=== PATIENT | male | born 1945 | race Caucasian/White ===

== ENCOUNTER → 2023-10-26 08:31 | Outpatient (REF) | payer MEDICARE, OTHER, SELFPAY | LOC: HWRAD 08:31 | PROVIDERS: ATTENDING PHYSICIAN Internal Medicine Critical Care Medicine; FAMILY PHYSICIAN Internal Medicine | DX: R91.1 Solitary pulmonary nodule (principal) | CPT/HCPCS: 71250 ==

== ENCOUNTER → 2023-11-23 09:15 | Outpatient (REF) | payer MEDICARE, OTHER, SELFPAY ==
[2023-11-23 12:27] LABS: FSH 5.1 mIU/ml (1.55-9.74); Prolactin 7.5 ng/ml (3.7-17.9)
== END ==
LOC: HWLAB 09:15
PROVIDERS: ATTENDING PHYSICIAN Internal Medicine Endocrinology, Diabetes & Metabolism; FAMILY PHYSICIAN Internal Medicine
DX: R79.89 Other specified abnormal findings of blood chemistry (principal)
CPT/HCPCS: 36415; 83001; 84146

== ENCOUNTER 2024-01-12 23:41 | Observation (INO) | payer MEDICARE, OTHER, SELFPAY ==
--- NOTE | 2024-01-12 20:34 | EDRN ---
Pt denies headache but says his head feels 'fuzzy' which is not a new symptoms. Pt says when he has his stroke last year symptoms resolved quicker than tonight. Pt denies cp, sob, abd pain, n/v, dizziness, visual disturbance, weakness. Pt does
not feel completely back to baseline yet although his speech is clear and appropriate. Pt has been taking medications as directed - did not have htn meds, eliquis or ativan tonight. Pt says he drank about 16 oz of beer tonight.
[2024-01-12 20:41] VITALS: BMI 27.8
[2024-01-12 20:43] VITALS: BP 141/85
[2024-01-12 20:45] VITALS: BP 141/85
[2024-01-12 20:50] LABS: Glucose - Point of Care 86 mg/dl (70-99)
[2024-01-12 20:56] LABS: % Basophils 0.5 % (0-2); % Eosinophils 2.3 % (0-6); % Immature Granulocytes 0.3 % (0-0.5); % Lymphocytes 29.2 % (20.5-51.1); % Monocytes 12.6 % (1.7-9.3); % Neutrophils 55.1 % (42.2-75.2); Absolute Eosinophils 0.2 10^3/uL (0-0.7); Absolute Lymphocytes 1.9 10^3/uL (1.2-3.4); Absolute Monocytes 0.8 10^3/uL (0.1-0.6); Absolute Neutrophils 3.7 10^3/uL (1.4-6.5); Hematocrit 31.4 % (39.0-52.0); Hemoglobin 11.4 g/dL (13.0-18.0); Mean Corp Hgb Conc. 36.3 g/dL (33.0-37.0); Mean Corpuscular Hgb 32.3 pg (27.0-31.0); Mean Platelet Volume 8.9 fL (7.4-10.4); Nucleated Red Blood Cells % 0 % (-); Platelet Count 238 10^3/uL (130-400); Red Blood Cell Count 3.53 10^6/uL (4.70-6.10); Red Cell Dist. Width 12.4 % (11.5-14.5); White Blood Cell Count 6.7 10^3/uL (4.8-10.8)
[2024-01-12 21:00] VITALS: BP 141/84
[2024-01-12 21:07] LABS: APTT 29.5 Sec (23.4-35.0); INR 1.22; PT 15.2 Sec (11.4-14.6)
[2024-01-12 21:08] LABS: Sodium 136 mmol/L (135-145)
[2024-01-12 21:10] LABS: ALT (SGPT) 14 U/L (0-50); AST (SGOT) 22 U/L (17-59); Albumin 3.6 g/dl (3.5-5.0); Blood Urea Nitrogen 34 mg/dl (9-20); Carbon Dioxide 24 mmol/L (22-30); Estimated Creatinine Clearance 52 ml/min; Glucose 81 mg/dl (70-99); eGFR > 60.00
[2024-01-12 21:12] LABS: Alkaline Phosphatase 52 U/L (38-126); Calcium 9.5 mg/dl (8.4-10.2); Chloride 103 mmol/L (98-107)
[2024-01-12 21:24] LABS: Alcohol 34 mg/dl
--- NOTE | 2024-01-12 21:33 | ED.CVA ---
History of Present Illness
General
Chief Complaint: CVA/TIA Symptoms
Source: patient and ambulance crew
Exam Limitations: none
Time Seen by Provider: 01/12/24 20:21
Nursing documentation reviewed up to this point in time: agreed with
Onset of Stroke Symptoms
Onset of symptoms known: Yes
Date of onset of symptoms: 01/12/24
Time of onset of symptoms: 19:15
Travel History
Have you had any contact with someone who has COVID-19?: No
Do you have any symptoms of coronavirus? Fever > 100 degrees, chills, cough, shortness of breath, sore throat, loss of taste or smell, muscle aches, or headache?: No
History of Present Illness
History of Present Illness:
78-year-old male with past medical history of COPD, hypertension, hyperlipidemia, atrial fibrillation on Eliquis, TIA who presents to the emergency department via EMS as a stroke alert due to abrupt onset of slurred speech and apparently facial
droop per EMS. Patient reports that he was in his normal state of health although was a very busy day today�he says he was setting up for a green party at his house. He says that in the evening he sat down and was drinking a beer and smoking a cigar and
was making some phone calls. He says that he had finished 1 beer and was speaking on the phone to his daughter at around 7 PM and during the phone call noticed that he had acute onset of slurred speech and word finding difficulties. He called a
neighbor who called EMS to bring him to the hospital. Per EMS on arrival he was noted to have a right-sided facial droop. A prehospital stroke alert was called. His symptoms have resolved by arrival and he says that he feels well here in the
hospital. He denies any vision loss. Denies any dizziness. Denies any numbness or weakness in his extremities. Denies any headache. He denies any other complaints. He says he had a very similar episode about a year ago when he was diagnosed
with new onset A-fib and was treated as a TIA.
Past History
Past History
ED Past Medical History: Cancer (Left kidney Cancer Skin cancer), COPD, HTN, Hypercholesterolemia, Psychiatric (Anxiety) and Other (Cancer of L kidney, sleep apnea, gallstones, Cystitis, Neuropathy)
ED Past Surgical History: Orthopedic (Back surgery for herniated disc), Tonsilectomy and Urological (L partial nephrectomy, 09/28/2021)
Patient has exhibited threatening behavior?: No
Social History
Tobacco: Former smoker
Alcohol: Occasional
Drug: None
Personal:
Living: with family
Employment: Retired
Family History
Family History: Diabetes and CAD
Review of Systems
Review of Systems
All Other Systems: ROS reviewed and negative except as documented in HPI and ROS
Constitutional: Denies fever or chills
EENT: Denies sore throat or runny nose
Respiratory: Denies cough or trouble breathing
Cardiac: Denies chest pain or palpitations
ABD/GI: Denies abdominal pain, nausea or vomiting
: Denies flank pain
Musculoskeletal: Denies neck pain or back pain
Neurological: Reports other (Speech disturbance, facial droop); Denies dizzy, headache, weakness or numbness
Phy Exam
Physical Exam
Physical Exam:
General: Awake, alert, oriented x3; no acute distress
Head: Normocephalic, atraumatic
Eyes: Conjunctiva normal, EOMI, pupils equal round and reactive to light bilaterally
Throat: Airway intact, handling secretions
Neck: Trachea midline, supple without meningismus
Lungs: Clear to auscultation bilaterally, no wheezing, rales, rhonchi
Heart: Regular rate and rhythm, no murmurs, gallops, or rubs
Abd: Soft, non distended, nontender
Neuro: Cranial nerves intact 2 through 12, speech is fluid with no dysarthria or aphasia, no limb ataxia, motor and sensory function is intact and symmetric in the upper and lower extremities
Skin: no rash
Extremities: No edema in extremities, equal pulses in all extremities
Scores
NIH Stroke Score
Level of Consciousness: 0 - Alert
LOC Questions: 0-Answers both correctly
LOC Commands: 0-Performs both correctly
Best Horizontal Gaze: 0-Normal
Visual Quint[place]: 0=Normal, no visual loss
Facial Palsy: 0=Normal, symmetrical
Motor - Right Arm: 0=No drift 10 seconds
Motor - Left Arm: 0=No drift 10 seconds
Motor - Right Le-No drift 5 seconds
Motor - Left Le-No drift 5 seconds
Limb Ataxia: 0-Absent
Sensation: 0-Normal
Best Language: 0-No aphasia
Dysarthria: 0-Normal
Extinction and Inattention: 0-No abnormality
Total Score:: 0
Thrombolytic Contraindication
Inclusion and Exclusion criteria reviewed: Yes
Reasons for NON-Tx with Thrombolytics ABSOLUTE Exclusions: Patient taking oral anticoagulant and last dose within 48 hours
Heart Failure Risk
Heart Failure Risk Score: Not Applicable
Heart Score for Chest Pain Patients
STEMI patient?: Not applicable
Withdrawal Assessment of Alcohol
Withdrawal Assessment Completed?: Not applicable
Course
Orders/Labs/Results
Orders:
Orders
01/12/24 20:20
CT Head W/o Cont STROKE ALERT Stat
Reason For Exam: slurred speech/facial droop
01/12/24 20:21
CT Head/Neck Ang STROKE ALERT Urgent
Comment:
Reason For Exam: speech issues, facial droop
Bedside Glucose- Treatment ONCE
Cardiac Monitoring- Treatment ONCE
IV Insert/Care/Rem.- Treatment PRN
Vital Signs- Treatment ONCE
Frequency: Hourly
Pulse Ox/cont/shift [RESP] Stat
Quantity: 1
01/12/24 20:22
Electrocardiogram (*1) Stat
Reason for Study: Other
Other Reason for Exam: neuro symptoms
EKG- Treatment ONCE
01/12/24 20:44
Alcohol Urgent
Complete Blood Count/With Diff Urgent
Comprehensive Metabolic Panel Urgent
PTT Urgent
Prothrombin Time Urgent
01/12/24 21:30
NEUROLOGY CONSULT Urgent
Consulting Provider: Satya Christopher
Was physician already notified: Yes
Aspirin Chewable [Low Strength Aspirin] 324 mg PO NOW STA
Abnormal Lab Results
01/12/24
20:44
RBC 3.53 L 10^6/uL
(4.70-6.10)
Hgb 11.4 L g/dL
(13.0-18.0)
Hct 31.4 L %
(39.0-52.0)
MCH 32.3 H pg
(27.0-31.0)
Absolute Monos (auto) 0.8 H 10^3/uL
(0.1-0.6)
Monocytes % 12.6 H %
(1.7-9.3)
PT 15.2 H Sec
(11.4-14.6)
BUN 34 H mg/dl
(9-20)
Total Protein 6.0 L g/dl
(6.3-8.2)
01/12/24 20:44
01/12/24 20:44
Vital Signs
Initial and Last Documented VS:
Initial Vital Signs
BP
141/85
01/12/24 20:43
Last Documented Vital Signs
Temp Pulse Resp BP Pulse Ox
36.6 C 61 15 144/86 96
01/12/24 20:45 01/12/24 22:00 01/12/24 21:15 01/12/24 22:00 01/12/24 22:00
MDM/Problems Addressed
Differential Diagnosis Includes:
TIA/CVA, alcohol intoxication, complex migraine, seizure
MDM/Problems Addressed:
78-year-old male presents for evaluation as a prehospital stroke alert�had acute onset of speech disturbance and facial droop which have now resolved. His vital signs are significant for marginal hypertension otherwise unremarkable. Physical exam
as above. NIH stroke scale 0. He was taken directly to CT on arrival and is noncontrast CT head was negative. CTA head and neck also negative for any acute pathology. Labs sent off including CBC and CMP, alcohol level. Case discussed with
neurology�with symptoms resolved suspect likely TIA; would not be a candidate for TNK regardless given his anticoagulant use. Will dose with aspirin plan for admission pending labs with concern for high risk TIA�ABCD2 score is 5.
Labs reviewed: CBC shows marginal anemia otherwise unremarkable, CMP no clinically significant abnormalities. Alcohol level was only 34. Case discussed with hospitalist for admission.
Chronic conditions affecting care:
TIA, hypertension, hyperlipidemia�higher risk for stroke
Chronic conditions affecting care: HTN
Acute Exacerbation and/or Progression of Chronic Illness:
Acutely hypertensive
Acute Exacerbation and/or Progression of Chronic Illness: HTN
*Radiology
Radiology exam reviewed: radiology read reviewed
*Pulse Oximetry
Patient hypoxic: no
*EKG
Interpreted by ED Provider?: Yes
Heart Rate: 63
Rate: normal
Rhythm: sinus
[place]: normal axis
Interval: normal interval
QRS Pattern: normal QRS
Ischemia: other (Possible inferior infarct age undetermined)
*Critical Care Note
Total Time (30-74mins, 75-104mins- exclusive of procedures): Not Applicable
Data Reviewed
Review of Other/Old Records Reveals: Labs, Records and Discharge Summary
Source: patient and ambulance crew
Patient Management
Discussion with other providers: Hospitalist (Discussed with hospitalist), Welt Rander (Discussed with neurologist) and Radiologist (Discussed with radiologist)
Escalation/DeEscalation of care consider admission/obs:
Admission indicated
ED Attending Note
-
Portions of this chart may have been created with voice recognition software.� Occasional wrong word or��sound alike� substitutions may have occurred due to the inherent limitations of voice recognition software.
Discharge Plan
Departure
Patient Disposition: Admit
Date of Disposition: 01/12/24
Time of Disposition: 21:33
Admit to doctor: Chris
Presentation/result/management discussed w/ accepting MD/DO: Hospitalist
Discharge Problem:
TIA (transient ischemic attack)
Prescriptions:
No Action
lorazepam 1 MG tablet
1 mg PO BID
atorvastatin 40 mg Tablet
40 mg PO HS Qty: 30 1RF
Eliquis 5 mg Tablet
5 mg PO BID Qty: 60 1RF
metoprolol succinate 25 mg tablet extended release 24 hr
12.5 mg PO HS
Referrals:
Ilan Elliott MD [Family Provider] -
Interventions
Interventions:
*Risk Screen - Suicide Last Done: 01/12/24 20:33
*General Assessment Last Done: 01/12/24 20:33
*Neglect/Abuse Screening Last Done: 01/12/24 20:33
ED- Fall Risk Assessment Last Done: 01/12/24 20:46
*ED COVID-19 Vaccine History Last Done: 01/12/24 20:25
ED- Pulmonary Assessment Last Done: 01/12/24 21:00
ED- Neurological Assessment Last Done: 01/12/24 20:33
ED- Cardiac Assessment Last Done: 01/12/24 21:00
ED Swallowing Screen Last Done: 01/12/24 21:40
Discharge Date and Time
Print Language: DOMINICAN
[2024-01-12] MEDS: LOW STRENGTH ASPIRIN 324 MG PO (21:44)
[2024-01-12 22:00] VITALS: BP 144/86
--- NOTE | 2024-01-12 22:05 | HPS.HSE ---
Family Physician
-
Family Physician: Ilan Elliott
Chief Complaint
-
Speech deficits, facial droop
History of Present Illness
The patient is a 78 yo male with PMH significant for left renal carcinoma with left partial nephrectomy 09/28/2021 at [facility], TIA, COPD, HTN, HLD, anxiety, sleep apnea, gallstones, cystitis, neuropathy, former smoker, A.fib on Eliquis, presents
to the ED due to 1 hour of speech disturbance and facial droop noted per EMS. The patient states that he felt acute onset of difficulty speaking, articulating and formulating words, and comprehending conversation. He did not have other focal
neurologic deficits. He had head 'fogginess' and headache. Currently NIH 0. CTA head and neck no acute findings, no large vessel occlusion or aneurysm.
ED txt:
Aspirin 324 mg PO
Neuro Consult
Medical History
Past Medical History
Past Medical History: Reports Arrhythmia (A.fib on Eliquis), Cancer (left renal carcinoma with left partial nephrectomy 09/28/2021 at [facility] ), COPD, HTN, Hypercholesterolemia, Psychiatric (Anxiety) and Other (TIA)
Past Surgical History: Reports Other (left partial nephrectomy 09/28/2021 at [facility] )
Social History
Tobacco: Other (Cigars)
Alcohol: Occasional
Personal:
Living: With Family
Family History
Family History: Other (Mom-CHF ( age 57), Father 82 yo unknown causes, Sister valve replacement)
Allergies / Home Medications
Allergies reflects when Allergies were last updated in [facility].
Home Medications with original date entered in [facility]
Allergy/Medication List:
Allergies
Allergy/AdvReac Type Severity Reaction Status Date / Time
No Known Allergies Allergy Verified 01/12/24 20:20
Home Medications
lorazepam 1 mg tablet 1 mg PO BID Mental Health/Anxiety 04/21/16
apixaban 5 mg tablet (Eliquis) 5 mg PO BID #60 tabs 02/27/23
atorvastatin 40 mg tablet 40 mg PO HS #30 tabs 02/27/23
metoprolol succinate 25 mg tablet,extended release 24 hr 12.5 mg PO HS 01/12/24
Review of Systems
-
A 12 point ROS was completed and negative except as noted: Yes
Physical Exam
Vital Signs
Vital Signs
Temp Pulse Resp BP Pulse Ox
97.8 F 61 15 144/86 96
01/12/24 20:45 01/12/24 22:00 01/12/24 21:15 01/12/24 22:00 01/12/24 22:00
Physical Exam
General: Well Developed, Well Nourished, No Apparent Distress, Comfortable and Conversant
HEENT: NormoCephalic, Anicteric and Moist mucous membranes
Respiratory: Clear
Cardiac: S1/S2 and Regular Rhythm
GI: Soft, Non Tender and Non Distended
Musculoskeletal: No Clubbing, No Cyanosis and No Edema
Skin: Warm and Dry
Neuro: AO x 3, No Motor Deficits, Nonfocal/grossly intact and Cranial Nerves Intact
Psych: Calm
Laboratory Results
-
01/12/24 20:44
01/12/24 20:44
Laboratory Results
PT 15.2 Sec (11.4-14.6) H 01/12/24 20:44
INR 1.22 01/12/24 20:44
APTT 29.5 Sec (23.4-35.0) 01/12/24 20:44
Total Bilirubin 1.0 mg/dl (0.2-1.3) 01/12/24 20:44
AST 22 U/L (17-59) 01/12/24 20:44
ALT 14 U/L (0-50) 01/12/24 20:44
Alkaline Phosphatase 52 U/L (38-126) 01/12/24 20:44
Data Reviewed
-
CT Scan: Report Reviewed by me (CT head - No acute intracranial abnormalities. Findings compatible with diffuse cortical atrophy with nonspecific white matter changes as described above. CTA head/neck - per below)
Medical Tests (Nuc Med, Echo, EKG etc): Report Reviewed by me (EKG NSR replaced Tor )
Impression/Plan
-
IMPRESSION:
The patient is a 78 yo male with PMH significant for left renal carcinoma with left partial nephrectomy 09/28/2021 at [facility], TIA, COPD, HTN, HLD, anxiety, sleep apnea, gallstones, cystitis, neuropathy, former smoker, A.fib on Eliquis, presents
to the ED due to 1 hour of speech disturbance and facial droop noted per EMS. The patient states that he felt acute onset of difficulty speaking, articulating and formulating words, and comprehending conversation. He did not have other focal
neurologic deficits. He had head 'fogginess' and headache. Currently NIH 0. CTA head and neck no acute findings, no large vessel occlusion or aneurysm.
ED txt:
Aspirin 324 mg PO
Neuro Consult
#Suspected Transient Ischemic Attack versus CVA
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
vertebral artery patent
-admit tele monitoring
-serial neuro-checks
-Neurology consultation placed from ED
-continue Eliquis
-[id number] mg given in ED tonight, will continue aspirin 81 mg daily for now
-MRI brain, head and neck pending
-consider echo, discuss with Neuro in am
-speech and PT evaluation
-Cholesterol lowering diet once passes bedside swallow
#Hx of Tor, currently in NSR
-cont BB and Eliquis
-monitor overnight on tele & discuss possible further OP cardiac monitoring if indicated
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
-for team tomorrow to discuss with the patient, possible OP ENT follow up
#Hypertension , essential, stable
-Metoprolol - continue with hold parameters
#Hyperlipidemia
-statin- continue Atorvastatin 40 mg nightly
#Anxiety
-continue home Ativan dosing 1 mg PO BID
#Chronic Obstructive Pulmonary Disease , not in exacerbation
#Former smoker
#Sleep apnea
#Left renal carcinoma with left partial nephrectomy 09/28/2021 - had resection at [facility]
#Benign Prostatic Hyperplasia
#Gallstones
#Cystitis
#Neuropathy
DVT proph- Eliquis
Full Code
[2024-01-12 23:00] VITALS: BP 132/83
[2024-01-12] MEDS: TOPROL XL 12.5 MG PO (23:44)
[2024-01-12] MEDS: LIPITOR 40 MG PO (23:44)
[2024-01-12] MEDS: ATIVAN 1 MG PO (23:45)
[2024-01-12] MEDS: ELIQUIS 5 MG PO (23:45)
[2024-01-13 00:01] VITALS: BMI 27.0
[2024-01-13 00:05] VITALS: BP 149/85
[2024-01-13 00:18] VITALS: BMI 27.0
--- NOTE | 2024-01-13 01:15 | PTCARENOTE ---
Pt admitted to [id number] as a tele overflow- ambulated to the bed as a self. POC discussed- pt NIH-0 on arrival. SB/SR on the monitor- 50s- 60s. oriented to the room and call conway within reach.
[2024-01-13 05:16] VITALS: BP 132/80
[2024-01-13 05:23] VITALS: BMI 27.0
[2024-01-13 06:04] LABS: HDL Cholesterol 70 mg/dl; LDL Cholesterol, Calculated 45 mg/dl; Total Cholesterol 126 mg/dl (50-199); Triglyceride 55 mg/dl (10-149); Very Low Density Lipoprotein 11 mg/dl (0-30)
--- NOTE | 2024-01-13 08:29 | W.PN.HOSP.TC ---
Addendum entered and electronically signed by Adriel Lamar DO 01/13/24 13:37:
MRI negative for stroke.
MRA head and neck without significant vascular disease.
Neurology okay with discharge. They do not recommend adding aspirin therapy.
Neurology addressing migraine headaches as outpatient.
Original Note:
Today's Communication/Plan
-
Brain MRI
Neurology consult
Assessment / Plan
Assessment / Plan
Gen-AAOx3, NAD
HEENT-NC, AT, anicteric, clear oral mm
Neck-supple
CV-reg, no M, +S1/S2
Lungs-clear B/L
Abd-soft, NT, ND
Ext-no edema
Musculoskeletal-no cyanosis, clubbing
Skin-warm and dry
Neuro-grossly non-focal
Psych-calm, cooperative
TIA -symptoms resolved. Await MRI brain. Neurology consulted. Was not on antiplatelet therapy prior to admission, continue low-dose aspirin.
History of TIA February of last year with negative brain MRI.
Atrial fibrillation -presumably paroxysmal. Continue Eliquis. Patient states that he has remained in sinus rhythm for quite a long time. However, he does not have a smart watch. Encouraged him to get one.
Normocytic anemia -unknown acuity or etiology. Monitor for now. Follow-up for further evaluation with PCP.
Essential hypertension -stable.
Hyperlipidemia -on atorvastatin. LDL 45, total cholesterol 126, HDL 70.
COPD without exacerbation -stable.
BPH
History of left renal cell carcinoma -status post left partial nephrectomy September 2021.
Tobacco dependence -encouraged cessation. He smokes cigars.
Full code
Anticipated Discharge: Within 24 hours
Subjective/Interval History
-
Date of Service: January 13, 2024
Patient seen and examined. No complaints. No problems overnight.
Objective Data
-
Labs:
Laboratory Results
01/12/24
20:44
WBC 6.7
Hgb 11.4 L
Hct 31.4 L
Plt Count 238
PT 15.2 H
INR 1.22
APTT 29.5
Sodium 136
Potassium 4.0
Chloride 103
Carbon Dioxide 24
BUN 34 H
Creatinine 1.2
Glucose 81
Calcium 9.5
Total Bilirubin 1.0
AST 22
ALT 14
Alkaline Phosphatase 52
Vital Signs:
Vital Signs
Temp Pulse Resp BP Pulse Ox
97.6 F 59 18 132/80 98
01/13/24 05:22 01/13/24 05:16 01/13/24 05:22 01/13/24 05:16 01/13/24 05:22
Review of Systems
-
History Source: Patient
All other systems: Reviewed and negative
[2024-01-13] MEDS: ATIVAN 1 MG PO (08:43)
[2024-01-13] MEDS: ELIQUIS 5 MG PO (08:43)
--- NOTE | 2024-01-13 08:52 | CON.NEURO ---
Neuro Assessment/Plan
Assessment
IMPRESSIONS/RECOMMENDATIONS:
Abrupt change in speech change with right-sided facial weakness which was subjective
In a patient with previously diagnosed TIA and treated with anticoagulation
Differential diagnosis would include recurrent TIA despite best therapies as well as migraine with aura
Plan
continue Apixaban
Follow MRI of brain results
no indication for aspirin
need to start routine medication for headache prevention as outpatient (Atogepant)
Prochlorperazine (Compazine) for headache rescue
Will continue to follow patient. Thank you.
Consultation
Order
Date of Consultation: 01/13/24
Requesting Provider: Hospitalist
Reason for Consult: Stroke alert
Subjective/Objective
Subjective Data
Date of Service: January 13, 2024
Patient was initially evaluated by this inpatient service February 2023. Adapted are the findings:
DATE/TIME OF CONSULTATION: 02/27/23
Reason for Consultation: Aphasia
History of Present Illness:
This is a 77-year-old right-handed male who has presented to the hospital on 02/26/23 with report of reading and speech difficulty. Patient reports watching [employer]opard[employer] last evening (02/26/23) and trying to read the newspaper, when his vision suddenly
became hard to focus, and he wasn't able to read the words on the paper. He has chronic dry eye and attributed his vision change to that. He went and put his eye drops in then sat back down to read again 10 minutes later, but he still couldn't read
the words. He reports being able to see some of them, but not make out others. He went to tell his to call an ambulance, and couldn't say the word 'ambulance.' On arrival in the ER he reports feeling back to his baseline, but he was newly found
to be in Afib. He reports the entire episode lasted about 10 minutes. He denies any dizziness, swallowing difficultly, numbness, weakness, chest pain, palpitations, and shortness of breath. He does report a transient pain under his left ribcage over
the past year that occurs at rest or with movement. Yesterday, this pain was constant for the majority of the day, when it typically resolves after 15 minutes. For two days leading up to this event he reports being hypotensive (90's/50's), and
having some dizziness with standing. He contacted his PCP about this and stopped taking his amlodipine. He also reports a chronic daily headache first thing in the morning for the past 20 associated with brain fog and facial flushing. He takes
tylenol for this and it resolves after a few hours. He has seen a Neurologist for this in the past and reports MRI/MRA imaging has been negative in the past except for a tortuous right vertebral artery, his last imaging was in 2020. He was also
found to have peripheral neuropathy. He reports chronic anxiety from his mother dying at a young age, and has been taking Ativan for 40 years, he has tried to cut back on this with some success, but thinks some of his brain fog/headache may be
related to his decreasing his Ativan usage. Additionally, he reports periodic 'ten vu' when he is bench pressing. He reports that he has transient 'intrusive thoughts' that something flew in front of his face, someone is standing behind him, or
occasionally he sees a vivid image of a bathroom that isn't actually there. He has never had any neuropsychological testing and was told this may be due to cervical spine compression due to weight lifting. He denies any recent illnesses or history
of TIA, stroke, or events like this in the past. He is taking aspirin 81mg at bedtime daily and denies missing any doses.
Neuro Imaging:
1. CT Head 02/26/23: No evidence of acute intracranial abnormality.
2. MRI Brain 02/27/23: No MRI evidence for acute infarct or intracranial hemorrhage. Mild diffuse cerebral and cerebellar volume loss. Mild white matter leukoaraiosis in the frontal and parietal lobes. Moderate amount of fluid in the mastoid air
cells bilaterally which appears chronic and not definitively changed from 12/14/2020.
3. Carotid Ultrasound: pending
4. Echo: pending
Differentials for the patient's presentation include:
1. TIA likely in the setting of newly discovered Afib
2. MRI brain negative for stroke
3. Brain fog/chronic daily headache possibly related to lorazepam dependence or possibly a metabolic abnormality
Recommendations:
-Okay to discontinue aspirin and initiate anticoagulation for newly discovered Afib/stroke prevention per Cardiology today
-Aspirin efficacy test demonstrating that aspirin is not effective in this patient, although this is now irrelevant as the patient requires anticoagulation due to Afib
-Continue tylenol PRN headache, avoid NSAIDs in the future due to anticoagulation
-Carotid ultrasound ordered/pending
-Echo ordered/pending
-Consider repeat MRA head as an outpatient
-LDL goal <70. LDL is 73. Increase home atorvastatin from 20mg to 40mg daily
-Goal normoglycemia, hbA1c is 5.7
-NIHSS and neurological checks per unit guidelines
-Patient provided with stroke education packet
-Checking blood work for metabolic abnormalities for brain fog workup, see orders.
Subsequently, patient was evaluated by nurse practitioner in the outpatient office and was described as having new onset atrial fibrillation for which apixaban was initiated. The diagnosis for symptomatology was decided to be TIA therefore. The
patient himself was described as having sensory loss and became concerned regarding ALS. 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
Symptomatology previously had also been evaluated by means of EEGs especially in light of the patient's chronic headaches. Those studies were described as unremarkable.
1 day ago, the patient returned to this hospital's emergency department due to proximately 1 hour of speech disturbance and right-sided facial droop. The patient also described himself as having difficulty with articulation, similar to prior
episode. Stroke alert was activated. On examination by professional medical care providers, the patient was not found to have significant findings.
Objective Data
Vital Signs
Temp Pulse Resp BP Pulse Ox
36.4 C 59 18 132/80 98
01/13/24 05:22 01/13/24 05:16 01/13/24 05:22 01/13/24 05:16 01/13/24 05:22
Lab Results
01/12/24 20:44
01/12/24 20:44
PT 15.2 Sec (11.4-14.6) H 01/12/24 20:44
INR 1.22 01/12/24 20:44
APTT 29.5 Sec (23.4-35.0) 01/12/24 20:44
Sodium 136 mmol/L (135-145) 01/12/24 20:44
Potassium 4.0 mmol/L (3.5-5.1) 01/12/24 20:44
BUN 34 mg/dl (9-20) H 01/12/24 20:44
Glucose 81 mg/dl (70-99) 01/12/24 20:44
Calcium 9.5 mg/dl (8.4-10.2) 01/12/24 20:44
LDL Cholesterol, Calc 45 mg/dl 01/13/24 05:20
Patient Allergies
No Known Allergies Allergy (Verified 01/12/24 20:20)
CVA Assessment
Onset of Stroke Symptoms
Onset of symptoms known: Yes
Date of onset of symptoms: 01/12/24
Time of onset of symptoms: 15:00
Time pt last seen normal is known: Yes
Date last time pt seen normal: 01/12/24
Time last time pt seen normal: 15:00
NIH Stroke Score
Level of Consciousness: 0 - Alert
LOC Questions: 0-Answers both correctly
LOC Commands: 0-Performs both correctly
Best Horizontal Gaze: 0-Normal
Visual Quintana: 0=Normal, no visual loss
Facial Palsy: 0=Normal, symmetrical
Motor - Right Arm: 0=No drift 10 seconds
Motor - Left Arm: 0=No drift 10 seconds
Motor - Right Le-No drift 5 seconds
Motor - Left Le-No drift 5 seconds
Limb Ataxia: 0-Absent
Sensation: 0-Normal
Best Language: 0-No aphasia
Dysarthria: 0-Normal
Extinction and Inattention: 0-No abnormality
Total Score:: 0
Tenecteplase Contraindications
Inclusion and Exclusion criteria reviewed: Yes
IAT Contraindications: NIHSS < 6
Review of Systems
-
History Source: Patient
All other systems: Reviewed and negative
EENT: Negative Decreased Vision or Swallowing Difficulty
Respiratory: Negative Trouble Breathing
Cardiac: Negative Chest Pain
Abdomen/GI: Negative Incontinence of Stool
Genitourinary: Negative Incontinence
Musculoskeletal: Neck Pain; Negative Back Pain
Neuro: Headache (daily) and Other (facial flushing)
Physical Exam
-
General: No Apparent Distress and Appears Stated Age
Eyes: OU Absent Papilledema, Round OU, [place] Conjunctivae and No Ptosis
HEENT: Anicteric and Moist Mucous Membranes
Neck: Full Range of Motion
Respiratory: No Dyspnea
Cardiac: No JVD
GI: Non-distended
Skin: Unremarkable
Extremities: No Clubbing, No Cyanosis and No Edema
Psych: Intact Judgement/Insight
Extended Neurological Exam
Mood & Affect: Anxious
Attention Span & Concentration: Awake, Alert, Interactive and No Difficulty with 2 Step Request
Memory: Unremarkable
Tremor: Hand Tremor Absent and Head Tremor Absent
Speech: Quality Unremarkable and Quantity Unremarkable
Cranial Nerve II: Left Eye: Pupillary Reactivity Unremarkable, Pupillary Size Unremarkable and Visual Quintana Intact
Cranial Nerve II: Right Eye: Pupillary Reactivity Unremarkable, Pupillary Size Unremarkable and Visual Quintana Intact
Cranial Nerves III, IV, : Extraocular Movement: Extraocular Movement Full in all Directions
Cranial Nerve VII: Facial Symmetry: Normal Facial Symmetry
Cranial Nerve VIII: Hearing: Unremarkable Hearing to Normal Conversational Volume
Cranial Nerves IX, X: Palate Movement: Palate Elevation Symmetric
Cranial Nerve XI: Shoulder Shrug: Unremarkable
Cranial Nerve XII: Tongue Protusion: Midline
Muscle Strength, Overall: Full Throughout
Muscle Bulk & Tone: Bulk Unremarkable and Tone Unremarkable
Pronator Drift: No Drift in Upper Extremities
Deep Tendon Reflexes: Unremarkable Throughout
Touch Sensation: Unremarkable
Coordination: [id number] Testing Unremarkable
Babinski Sign: Absent Bilaterally
Data Reviewed
-
CT-A: Report Reviewed
CT Head: Report Reviewed
Labs: Report Reviewed
Reviewed with: Physician and Patient
Old Records: Summarized
Medications
-
Active Medications
Generic Name Dose Route Start Last Admin
Trade Name Freq PRN Reason Stop Dose Admin
Acetaminophen 650 mg 01/12/24 23:58
Acetaminophen 650 Mg Rectal Suppository RECTAL 02/09/24 23:57
Q4HPRN PRN
MAZARIEGOS, mild pain, or temp >100.4F
Acetaminophen 650 mg 01/12/24 23:58
Acetaminophen 325 Mg Tablet PO 02/09/24 23:57
Q4HPRN PRN
MAZARIEGOS, mild pain, or temp >100.4F
Apixaban 5 mg 01/12/24 22:59 01/13/24 08:43
Apixaban (Eliquis) 5 Mg Tablet PO 02/09/24 22:58 5 mg
BID COLT Administration
Aspirin 81 mg 01/13/24 20:00
Aspirin 81 Mg Chewable Tablet PO 02/10/24 19:59
DAILY COLT
Atorvastatin Calcium 40 mg 01/12/24 22:59 01/12/24 23:44
Atorvastatin (Lipitor) 40 Mg Tablet PO 02/09/24 22:58 40 mg
HS COLT Administration
Lorazepam 1 mg 01/12/24 23:00 01/13/24 08:43
Lorazepam 1 Mg Tablet PO 02/09/24 22:59 1 mg
BID COLT Administration
Metoprolol Succinate 12.5 mg 01/12/24 22:59 01/12/24 23:44
Metoprolol 25 Mg Extended Release Tablet PO 02/09/24 22:58 12.5 mg
HS COLT Administration
Home Medications
�Medication �Instructions �Recorded
lorazepam 1 mg tablet 1 mg PO BID Mental Health/Anxiety 04/21/16
apixaban 5 mg tablet (Eliquis) 5 mg PO BID #60 tabs 02/27/23
atorvastatin 40 mg tablet 40 mg PO HS #30 tabs 02/27/23
metoprolol succinate 25 mg 12.5 mg PO HS 01/12/24
tablet,extended release 24 hr
[2024-01-13] MEDS: COMPAZINE 10 MG PO (11:37)
--- NOTE | 2024-01-13 11:45 | PTOTSP ---
ST Acute Care Evaluation
Pt presents with oropharyngeal and esophageal phases WFL for PO intake of all solids and liquids; no overt s/s of penetration or aspiration observed at bedside.
Pt's speech, language, and cognition symptoms have reportedly resolved. No overt difficulties noted when CHIP BIN OPERATOR interacted with pt. Nevertheless, CHIP BIN OPERATOR provided -approved educational hand-out about pursuing OP CHIP BIN OPERATOR services if pt starts to notice
difficulties with his cognitive function upon returning home and returning to ADLs.
Recommendations:
- Continue with regular solids, thin liquids, meds as tolerated.
- General aspiration precautions.
- No skilled CHIP BIN OPERATOR services deemed warranted at this time.
- After d/c, if pt starts to notice more difficulty with cognitive linguistic tasks, pt to pursue OP CHIP BIN OPERATOR evaluation. If pt experiences acute, abrupt onset of symptoms again, pt should go to the ED.
[2024-01-13 13:12] VITALS: BP 144/87
--- NOTE | 2024-01-13 13:40 | W.DS.TRANS ---
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
-
Discharge Instructions:
Discharge Diagnosis/Procedures TIA versus migraine with aura
Diet Low Fat,Low Cholesterol
Activity As tolerated
Driving Restrictions As prior to admission
Bathing Restrictions None
Instructions:
Stand-Alone Forms:
Changes to Home Medications: No
Discharge Medications:
DC Medications w/original date entered in [facility]
lorazepam 1 mg tablet 1 mg PO BID Mental Health/Anxiety 04/21/16
apixaban 5 mg tablet (Eliquis) 5 mg PO BID #60 tabs 02/27/23
atorvastatin 40 mg tablet 40 mg PO HS #30 tabs 02/27/23
metoprolol succinate 25 mg tablet,extended release 24 hr 12.5 mg PO HS 01/12/24
prochlorperazine maleate 10 mg tablet 10 mg PO Q8HPRN PRN headache #30 tabs 01/13/24
Home Medication Changes
Pending Results: No
--- NOTE | 2024-01-13 14:17 | PTCARENOTE ---
d/c instructions read to pt and pt verbalized understanding. iv and tele removed. pt left with belongings from room and educational packet. pt left via wheelchair with staff member.
== END 2024-01-13 14:18 | disposition home or self-care (01) ==
LOC: IVU 23:41
PROVIDERS: ADMITTING PHYSICIAN Internal Medicine; ATTENDING PHYSICIAN Hospitalist; CONSULT PHYSICIAN Psychiatry & Neurology Neurology; EMERGENCY PHYSICIAN Emergency Medicine; FAMILY PHYSICIAN Internal Medicine
DX: G45.9 Transient cerebral ischemic attack, unspecified (principal); R47.01 Aphasia; R29.810 Facial weakness; I10 Essential (primary) hypertension; E78.00 Pure hypercholesterolemia, unspecified; G47.30 Sleep apnea, unspecified; F41.9 Anxiety disorder, unspecified; G62.9 Polyneuropathy, unspecified; D64.9 Anemia, unspecified; Y90.1 Blood alcohol level of 20-39 mg/100 ml; F17.290 Nicotine dependence, other tobacco product, uncomplicated; N40.0 Benign prostatic hyperplasia without lower urinary tract symptoms; E78.5 Hyperlipidemia, unspecified; J44.9 Chronic obstructive pulmonary disease, unspecified; I48.0 Paroxysmal atrial fibrillation; Z83.3 Family history of diabetes mellitus; Z82.49 Family history of ischemic heart disease and other diseases of the circulatory system; Z90.5 Acquired absence of kidney; Z85.528 Personal history of other malignant neoplasm of kidney; Z85.828 Personal history of other malignant neoplasm of skin; Z79.01 Long term (current) use of anticoagulants; Z86.73 Personal history of transient ischemic attack (TIA), and cerebral infarction without residual deficits; Z79.82 Long term (current) use of aspirin
CPT/HCPCS: 70450; 70496; 70498; 70544; 70548; 70551; 80053; 80061; 82077; 82962; 85025; 85610; 85730; 92610; 93005; 94760; 99285; A9585; G0378; Q9967

== ENCOUNTER → 2024-02-04 09:38 | Outpatient (REF) | payer MEDICARE, OTHER, SELFPAY ==
[2024-02-04 13:02] LABS: TSH Reflex To Free T4 0.97 uIU/ml (0.47-4.68)
[2024-02-04 13:21] LABS: Vitamin B12 668 pg/ml (239-931)
[2024-02-05 15:45] LABS: Syphilis/T. pallidum Ab Reflex Negative (Negative)
== END ==
LOC: HWLAB 09:38
PROVIDERS: ATTENDING PHYSICIAN Psychiatry & Neurology Neurology; FAMILY PHYSICIAN Internal Medicine
DX: R41.89 Other symptoms and signs involving cognitive functions and awareness (principal); I48.91 Unspecified atrial fibrillation
CPT/HCPCS: 36415; 82607; 84443; 86780

== ENCOUNTER → 2024-02-21 04:00 | Outpatient (REF) | payer MEDICARE, OTHER, SELFPAY | LOC: DHSLP 04:00 | PROVIDERS: ATTENDING PHYSICIAN Internal Medicine; FAMILY PHYSICIAN Internal Medicine | DX: G47.19 Other hypersomnia (principal); R06.83 Snoring | CPT/HCPCS: 95800 ==

== ENCOUNTER → 2024-04-09 08:48 | Outpatient (REF) | payer MEDICARE, OTHER, SELFPAY | LOC: DHSLP 08:48 | PROVIDERS: ATTENDING PHYSICIAN Internal Medicine; FAMILY PHYSICIAN Internal Medicine | DX: G47.33 Obstructive sleep apnea (adult) (pediatric) (principal); G47.61 Periodic limb movement disorder; G47.00 Insomnia, unspecified | CPT/HCPCS: 95810 ==

== ENCOUNTER → 2024-04-13 07:15 | Outpatient (REF) | payer MEDICARE, OTHER, SELFPAY | LOC: MRI 07:15 | PROVIDERS: ATTENDING PHYSICIAN Psychiatry & Neurology Neurology; FAMILY PHYSICIAN Internal Medicine | DX: M54.2 Cervicalgia (principal) | CPT/HCPCS: 72141 ==

== ENCOUNTER → 2024-04-21 08:08 | Outpatient (REF) | payer MEDICARE, OTHER, SELFPAY ==
[2024-04-21 11:01] LABS: % Basophils 0.3 % (0-2); % Eosinophils 0.7 % (0-6); % Immature Granulocytes 0.7 % (0-0.5); % Lymphocytes 23.3 % (20.5-51.1); % Monocytes 10.2 % (1.7-9.3); % Neutrophils 64.8 % (42.2-75.2); Absolute Eosinophils 0.1 10^3/uL (0-0.7); Absolute Immature Granulocytes 0.1 10^3/uL (0-0.05); Absolute Lymphocytes 2.4 10^3/uL (1.2-3.4); Absolute Monocytes 1.1 10^3/uL (0.1-0.6); Absolute Neutrophils 6.7 10^3/uL (1.4-6.5); Hematocrit 37.6 % (39.0-52.0); Mean Corp Hgb Conc. 34.6 g/dL (33.0-37.0); Mean Corpuscular Hgb 32.1 pg (27.0-31.0); Mean Corpuscular Volume 92.8 fL (80.0-94.0); Mean Platelet Volume 9.4 fL (7.4-10.4); Nucleated Red Blood Cells % 0 % (-); Platelet Count 294 10^3/uL (130-400); Red Blood Cell Count 4.05 10^6/uL (4.70-6.10); Red Cell Dist. Width 12.6 % (11.5-14.5); White Blood Cell Count 10.3 10^3/uL (4.8-10.8)
[2024-04-21 11:14] LABS: ALT (SGPT) 18 U/L (0-50); AST (SGOT) 22 U/L (17-59); Alkaline Phosphatase 55 U/L (38-126); Blood Urea Nitrogen 32 mg/dl (9-20); Calcium 9.9 mg/dl (8.4-10.2); Carbon Dioxide 29 mmol/L (22-30); Chloride 100 mmol/L (98-107); Glucose 94 mg/dl (70-99); HDL Cholesterol 87 mg/dl; LDL Cholesterol, Calculated 68 mg/dl; Potassium 4.1 mmol/L (3.5-5.1); Sodium 139 mmol/L (135-145); Total Bilirubin 0.8 mg/dl (0.2-1.3); Total Cholesterol 167 mg/dl (50-199); Total Protein 6.4 g/dl (6.3-8.2); Triglyceride 60 mg/dl (10-149); Very Low Density Lipoprotein 12 mg/dl (0-30); eGFR > 60.00
== END ==
LOC: HWLAB 08:08
PROVIDERS: ATTENDING PHYSICIAN Internal Medicine Cardiovascular Disease; FAMILY PHYSICIAN Internal Medicine
DX: I48.0 Paroxysmal atrial fibrillation (principal); I10 Essential (primary) hypertension; E78.00 Pure hypercholesterolemia, unspecified
CPT/HCPCS: 36415; 80053; 80061; 85025

== ENCOUNTER → 2024-05-06 11:41 | Outpatient (REF) | payer MEDICARE, OTHER, SELFPAY ==
[2024-05-09 03:17] LABS: Lipoprotein a (Lp a) 6 mg/dL (<=29)
== END ==
LOC: HWLAB 11:41
PROVIDERS: ATTENDING PHYSICIAN Internal Medicine Cardiovascular Disease; FAMILY PHYSICIAN Internal Medicine
DX: I25.10 Atherosclerotic heart disease of native coronary artery without angina pectoris (principal)
CPT/HCPCS: 36415; 83695

== ENCOUNTER → 2024-05-09 06:59 | Outpatient (REF) | payer MEDICARE, OTHER, SELFPAY | LOC: PAVMRI 06:59 | PROVIDERS: ATTENDING PHYSICIAN Physician Assistant Surgical; FAMILY PHYSICIAN Internal Medicine | DX: M54.16 Radiculopathy, lumbar region (principal); M54.50 Low back pain, unspecified; M41.86 Other forms of scoliosis, lumbar region; M43.16 Spondylolisthesis, lumbar region | CPT/HCPCS: 72148 ==

== ENCOUNTER → 2025-06-17 07:40 | Outpatient (REF) | payer MEDICARE, OTHER, SELFPAY ==
[2025-06-17 08:32] LABS: Medical Necessity Pt Refused HGB A1C
[2025-06-17 12:49] LABS: Urine Character Clear (Clear)
[2025-06-17 13:36] LABS: Urine Squamous Cell 0-2 /LPF (Few); Urine White Cell 0-2 /HPF (0-5)
[2025-06-17 16:13] LABS: ALT (SGPT) 24 U/L (0-50); AST (SGOT) 25 U/L (17-59); Albumin 4.2 g/dl (3.5-5.0); Alkaline Phosphatase 55 U/L (38-126); Blood Urea Nitrogen 30 mg/dl (9-20); Calcium 9.6 mg/dl (8.4-10.2); Carbon Dioxide 27 mmol/L (22-30); Chloride 103 mmol/L (98-107); Glucose 98 mg/dl (70-99); HDL Cholesterol 87 mg/dl; LDL Cholesterol, Calculated 68 mg/dl; Potassium 4.1 mmol/L (3.5-5.1); Sodium 135 mmol/L (135-145); Total Protein 7.0 g/dl (6.3-8.2); Very Low Density Lipoprotein 7 mg/dl (0-30); eGFR > 60.00
[2025-06-17 17:22] LABS: Free T3 3.72 pg/ml (2.77-5.27)
[2025-06-17 17:36] LABS: Cortisol, Random 12.8 ug/dl; TSH 1.27 uIU/ml (0.47-4.68)
[2025-06-17 19:01] LABS: FSH 5.1 mIU/ml (1.55-9.74)
[2025-06-18 15:59] LABS: Thyroglobulin Antibodies <1.5 IU/mL (0.0-4.0)
[2025-06-19 11:05] LABS: CRP, Ultra Sensitive 2.74 mg/L (0.30-5.00)
== END ==
LOC: HWLAB 07:40
PROVIDERS: FAMILY PHYSICIAN Internal Medicine
DX: E34.9 Endocrine disorder, unspecified (principal); E55.9 Vitamin D deficiency, unspecified; E53.8 Deficiency of other specified B group vitamins; R53.83 Other fatigue; F41.9 Anxiety disorder, unspecified; E78.5 Hyperlipidemia, unspecified; I10 Essential (primary) hypertension; R30.0 Dysuria; G47.30 Sleep apnea, unspecified; J44.9 Chronic obstructive pulmonary disease, unspecified; Z85.528 Personal history of other malignant neoplasm of kidney; Z86.73 Personal history of transient ischemic attack (TIA), and cerebral infarction without residual deficits; Z86.0100 Personal history of colon polyps, unspecified; E11.9 Type 2 diabetes mellitus without complications
CPT/HCPCS: 36415; 80053; 80061; 81003; 81015; 82172; 82533; 82627; 82670; 83001; 83002; 83525; 84144; 84270; 84402; 84403; 84439; 84443; 84481; 86141; 86376; 86800

== ENCOUNTER → 2025-06-18 13:08 | Outpatient (REF) | payer MEDICARE, OTHER, SELFPAY ==
[2025-06-18 15:01] LABS: Hematocrit 40.4 % (39.0-52.0); Hemoglobin 13.3 g/dL (13.0-18.0); Mean Corp Hgb Conc. 32.9 g/dL (33.0-37.0); Mean Corpuscular Volume 96.2 fL (80.0-94.0); Nucleated Red Blood Cells % 0 % (-); Platelet Count 299 10^3/uL (130-400); Red Cell Dist. Width 12.6 % (11.5-14.5)
[2025-06-18 15:34] LABS: Iron 89 ug/dl (49-181)
[2025-06-18 15:44] LABS: Total Iron Binding Capacity 343 ug/dl (261-462)
[2025-06-18 16:16] LABS: Vitamin D, 25-OH*** 58.5 ng/mL (30-80)
[2025-06-18 16:34] LABS: Ferritin 39.1 ng/ml (17.9-464.0)
[2025-06-18 17:06] LABS: Folate 18.4 ng/ml (2.76-20); Vitamin B12 637 pg/ml (239-931)
[2025-06-19 09:48] LABS: PSA, Total - Screen 3.37 ng/ml (0.0-4.0)
[2025-06-19 11:04] LABS: Glycohemoglobin (HgbA1c) 5.6 % (4.0-5.9)
[2025-06-20 19:40] LABS: Copper, Serum 122.8 ug/dL (70.0-140.0)
[2025-06-20 23:27] LABS: Magnesium, RBC's Result 5.3 mg/dL (3.6-7.5)
== END ==
LOC: HWRAD 13:08
PROVIDERS: ATTENDING PHYSICIAN Podiatrist Foot & Ankle Surgery; FAMILY PHYSICIAN Internal Medicine
DX: M19.072 Primary osteoarthritis, left ankle and foot (principal); M19.071 Primary osteoarthritis, right ankle and foot; E34.9 Endocrine disorder, unspecified; E55.9 Vitamin D deficiency, unspecified; E53.8 Deficiency of other specified B group vitamins; R53.83 Other fatigue; F41.9 Anxiety disorder, unspecified; E78.5 Hyperlipidemia, unspecified; I10 Essential (primary) hypertension; R30.0 Dysuria; G47.30 Sleep apnea, unspecified; J44.9 Chronic obstructive pulmonary disease, unspecified; Z85.528 Personal history of other malignant neoplasm of kidney; Z86.73 Personal history of transient ischemic attack (TIA), and cerebral infarction without residual deficits; Z86.0100 Personal history of colon polyps, unspecified; I48.91 Unspecified atrial fibrillation; R73.9 Hyperglycemia, unspecified; Z12.5 Encounter for screening for malignant neoplasm of prostate
CPT/HCPCS: 36415; 73630; 82306; 82525; 82607; 82728; 82746; 83036; 83090; 83540; 83550; 83735; 84630; 85025; 85652; G0103

== ENCOUNTER → 2025-08-12 10:20 | Outpatient (REF) | payer MEDICARE, OTHER, SELFPAY | LOC: HWRAD 10:20 | PROVIDERS: ATTENDING PHYSICIAN Podiatrist Foot & Ankle Surgery; FAMILY PHYSICIAN Internal Medicine | DX: S90.32XA Contusion of left foot, initial encounter (principal) | CPT/HCPCS: 73630 ==